=== PATIENT | male | born 1965 | race Caucasian/White ===

== ENCOUNTER 2018-08-03 06:08 | Emergency (ER) | payer OTHER ==
[2018-08-03] MEDS: ONDANSETRON 4 MG INJ IV ×3 (07:40→09:29)
[2018-08-03] MEDS: morphine 4 MG/ML VIAL IV (07:40)
[2018-08-03 07:41] LABS: ADD MAN DIFF? NO
[2018-08-03 07:43] LABS: WHITE BLOOD COUNT 11.1 10^3/ul (4.8-10.8)
[2018-08-03 07:43] LABS: ABNORMAL IP MESSAGE 1; BASOPHILS % 0.3 % (0.0-2.0); EOSINOPHILS % 0.4 % (0.0-7.0); HEMATOCRIT 40.1 % (42.0-52.0); HEMOGLOBIN 13.1 g/dl (14.0-18.0); LYMPHOCYTES # 0.6 10^3/ul (0.8-2.9); MEAN CORPUSCULAR HEMOGLOBIN 26.5 pg (29.0-33.0); MEAN CORPUSCULAR HGB CONC 32.7 g/dl (32.0-37.0); MEAN PLATELET VOLUME 8.8 fl (7.4-10.4); MONOCYTE # 0.8 10^3/ul (0.3-0.9); MONOCYTES % 7.6 % (0.0-11.0); NEUTROPHIL # 9.6 10^3/ul (1.6-7.5); NEUTROPHILS % 86.3 % (39.0-77.0); PLATELET COUNT 221 10^3/UL (140-415); POSITIVE DIFF @See below; RED BLOOD COUNT 4.95 10^6/ul (4.70-6.10); RED CELL DISTRIBUTION WIDTH 16.9 % (11.5-14.5)
[2018-08-03 08:02] LABS: ALANINE AMINOTRANSFERASE 16 IU/L (13-69); ALBUMIN 4.8 g/dl (3.3-4.9); ALBUMIN/GLOBULIN RATIO 1.09; ALKALINE PHOSPHATASE 128 IU/L (42-121); ANION GAP 16 (5-13); ASPARTATE AMINO TRANSFERASE 16 IU/L (15-46); BILIRUBIN,INDIRECT 0.5 mg/dl (0-1.1); BILIRUBIN,TOTAL 0.5 mg/dl (0.2-1.3); BLOOD UREA NITROGEN 28 mg/dl (7-20); CALCIUM 9.6 mg/dl (8.4-10.2); CARBON DIOXIDE 25 mmol/L (21-31); CHLORIDE 97 mmol/L (97-110); CREATININE 7.08 mg/dl (0.61-1.24); Estimated GFR 8 mL/min (>60); GLUCOSE 154 mg/dl (70-220); LIPASE 52 U/L (23-300); SODIUM 138 mmol/L (135-144); TOTAL PROTEIN 9.2 g/dl (6.1-8.1)
== END 2018-08-03 09:39 | disposition home or self-care (01) ==
LOC: E/R 06:08
DX: R10.9 Unspecified abdominal pain (principal); R11.2 Nausea with vomiting, unspecified; I12.0 Hypertensive chronic kidney disease with stage 5 chronic kidney disease or end stage renal disease; N18.6 End stage renal disease; Z99.2 Dependence on renal dialysis
CPT/HCPCS: 36415; 80053; 83690; 85025; 96374; 96375; 96376; 99284-25

== ENCOUNTER 2018-08-05 21:29 | Inpatient (IN) | payer OTHER ==
[2018-08-05 22:44] LABS: ADD MAN DIFF? NO
[2018-08-05 22:46] LABS: BASOPHILS % 0.3 % (0.0-2.0); EOSINOPHILS # 0.1 10^3/ul (0.0-0.5); HEMATOCRIT 34.1 % (42.0-52.0); HEMOGLOBIN 11.2 g/dl (14.0-18.0); LYMPHOCYTES # 0.8 10^3/ul (0.8-2.9); LYMPHOCYTES % 10.7 % (15.0-51.0); MEAN CORPUSCULAR HEMOGLOBIN 26.3 pg (29.0-33.0); MEAN CORPUSCULAR HGB CONC 32.8 g/dl (32.0-37.0); MEAN PLATELET VOLUME 8.7 fl (7.4-10.4); MONOCYTE # 0.8 10^3/ul (0.3-0.9); MONOCYTES % 11.6 % (0.0-11.0); NEUTROPHIL # 5.3 10^3/ul (1.6-7.5); PLATELET COUNT 185 10^3/UL (140-415); RED BLOOD COUNT 4.26 10^6/ul (4.70-6.10); RED CELL DISTRIBUTION WIDTH 16.1 % (11.5-14.5)
[2018-08-05 22:46] LABS: WHITE BLOOD COUNT 7.1 10^3/ul (4.8-10.8)
[2018-08-05] MEDS: morphine 4 MG/ML VIAL IV (22:52)
[2018-08-05] MEDS: ONDANSETRON 4 MG INJ IV (22:52)
[2018-08-05 23:02] LABS: LACTIC ACID 0.7 mmol/L (0.5-2.0)
[2018-08-05 23:04] LABS: ALANINE AMINOTRANSFERASE 16 IU/L (13-69); ALBUMIN/GLOBULIN RATIO 1.05; ALKALINE PHOSPHATASE 92 IU/L (42-121); ANION GAP 12 (5-13); ASPARTATE AMINO TRANSFERASE 11 IU/L (15-46); BILIRUBIN,INDIRECT 0.3 mg/dl (0-1.1); BILIRUBIN,TOTAL 0.3 mg/dl (0.2-1.3); BLOOD UREA NITROGEN 23 mg/dl (7-20); CALCIUM 8.4 mg/dl (8.4-10.2); CARBON DIOXIDE 27 mmol/L (21-31); CHLORIDE 94 mmol/L (97-110); Estimated GFR 10 mL/min (>60); GLUCOSE 127 mg/dl (70-220); LIPASE 18 U/L (23-300); POTASSIUM 3.7 mmol/L (3.5-5.1); SODIUM 133 mmol/L (135-144); TOTAL PROTEIN 7.8 g/dl (6.1-8.1)
[2018-08-05 23:15] LABS: TROPONIN-I < 0.012 ng/ml (0.000-0.120)
[2018-08-05] MEDS ORDERED: ACETAMINOPHEN 650 MG SUPP PR (23:30)
[2018-08-05] MEDS ORDERED: NACL 0.9% 3 ML SYG IV (23:30)
[2018-08-05] MEDS ORDERED: ACETAMINOPHEN 325 MG TAB PO (23:30)
[2018-08-05] MEDS: PIPER-TAZO 3.375 GM IV (PMX) 100 ML IVPB (23:34)
[2018-08-06] MEDS: hydrALAzine 20 MG INJ IV ×3 (00:08→14:59)
[2018-08-06] MEDS: metroNIDAZOLE 500 MG/NS (PMX) 100 ML IVPB ×4 (00:09→20:39)
[2018-08-06] MEDS: DEXTROSE 5%-0.45% NACL 1,000 ML IV ×2 (01:24→23:22)
[2018-08-06] MEDS: CIPROFLOXACIN 400 MG in D5W 200 ML IVPB (01:27)
[2018-08-06] MEDS: ONDANSETRON 4 MG INJ IV ×4 (03:16→22:20)
[2018-08-06] MEDS: morphine 2 MG INJ IV ×4 (03:18→22:20)
[2018-08-06] MEDS: PANTOPRAZOLE 40 MG INJ IV (05:49)
[2018-08-06 05:59] LABS: ADD MAN DIFF? NO
[2018-08-06 06:00] LABS: WHITE BLOOD COUNT 8.2 10^3/ul (4.8-10.8)
[2018-08-06 06:00] LABS: BASOPHILS % 0.2 % (0.0-2.0); EOSINOPHILS # 0.2 10^3/ul (0.0-0.5); EOSINOPHILS % 1.8 % (0.0-7.0); HEMATOCRIT 31.5 % (42.0-52.0); HEMOGLOBIN 10.3 g/dl (14.0-18.0); LYMPHOCYTES # 0.6 10^3/ul (0.8-2.9); LYMPHOCYTES % 7.3 % (15.0-51.0); MEAN CORPUSCULAR HEMOGLOBIN 26.7 pg (29.0-33.0); MEAN CORPUSCULAR HGB CONC 32.7 g/dl (32.0-37.0); MEAN CORPUSCULAR VOLUME 81.6 fl (82.0-101.0); MONOCYTE # 0.6 10^3/ul (0.3-0.9); MONOCYTES % 7.8 % (0.0-11.0); NEUTROPHIL # 6.8 10^3/ul (1.6-7.5); NEUTROPHILS % 82.4 % (39.0-77.0); PLATELET COUNT 182 10^3/UL (140-415); RED BLOOD COUNT 3.86 10^6/ul (4.70-6.10); RED CELL DISTRIBUTION WIDTH 16.1 % (11.5-14.5)
[2018-08-06 06:35] LABS: ALANINE AMINOTRANSFERASE 12 IU/L (13-69); ALBUMIN 3.7 g/dl (3.3-4.9); ALBUMIN/GLOBULIN RATIO 1.05; ALKALINE PHOSPHATASE 76 IU/L (42-121); ANION GAP 13 (5-13); ASPARTATE AMINO TRANSFERASE 11 IU/L (15-46); BILIRUBIN,INDIRECT 0.3 mg/dl (0-1.1); BILIRUBIN,TOTAL 0.3 mg/dl (0.2-1.3); BLOOD UREA NITROGEN 26 mg/dl (7-20); CARBON DIOXIDE 25 mmol/L (21-31); CHLORIDE 95 mmol/L (97-110); CREATININE 7.14 mg/dl (0.61-1.24); Estimated GFR 8 mL/min (>60); GLUCOSE 112 mg/dl (70-220); POTASSIUM 3.5 mmol/L (3.5-5.1); SODIUM 133 mmol/L (135-144); TOTAL PROTEIN 7.2 g/dl (6.1-8.1)
[2018-08-06] MEDS ORDERED: CIPROFLOXACIN 200 MG/D5W IVPB 100 ML IVPB (09:00)
[2018-08-06] MEDS: METOCLOPRAMIDE 10 MG INJ IV ×2 (11:19→16:55)
[2018-08-06] MEDS: AMLODIPINE 5 MG TAB PO ×2 (13:55→20:40)
[2018-08-06] MEDS ORDERED: DEXTROSE 50% 50 ML SYRINGE IV ×2 (14:00)
[2018-08-06] MEDS ORDERED: GLUCOSE GEL 15 GRAM TUBE BUCCAL (14:00)
[2018-08-06] MEDS ORDERED: GLUCAGON 1 MG INJ IM (14:00)
[2018-08-06] MEDS ORDERED: GLUCOSE GEL 15 GRAM TUBE PO ×2 (14:00)
[2018-08-06] MEDS: INSULIN ASPART [NOVOLOG] 3 ML PEN SC ×2 (17:58→21:00)
[2018-08-06 19:45] LABS: HEPATITIS B SURFACE ANTIGEN NEGATIVE (NEGATIVE)
[2018-08-06 20:02] LABS: HEPATITIS B SURFACE ANTIBODY NEGATIVE (NEGATIVE)
[2018-08-07] MEDS: CIPROFLOXACIN 400 MG in D5W 200 ML IVPB ×2 (01:12→23:38)
[2018-08-07] MEDS: ACCU-CHEK XX (02:00)
[2018-08-07] MEDS: PANTOPRAZOLE 40 MG INJ IV (05:23)
[2018-08-07 05:40] LABS: ADD MAN DIFF? NO
[2018-08-07 05:50] LABS: WHITE BLOOD COUNT 7.8 10^3/ul (4.8-10.8)
[2018-08-07 05:50] LABS: BASOPHIL # 0.1 10^3/ul (0.0-0.1); BASOPHILS % 0.6 % (0.0-2.0); EOSINOPHILS # 0.2 10^3/ul (0.0-0.5); EOSINOPHILS % 2.9 % (0.0-7.0); LYMPHOCYTES # 1.3 10^3/ul (0.8-2.9); MEAN CORPUSCULAR HEMOGLOBIN 26.5 pg (29.0-33.0); MEAN CORPUSCULAR HGB CONC 32.3 g/dl (32.0-37.0); MEAN CORPUSCULAR VOLUME 82.2 fl (82.0-101.0); MONOCYTE # 1.2 10^3/ul (0.3-0.9); MONOCYTES % 15.8 % (0.0-11.0); NEUTROPHILS % 63.3 % (39.0-77.0); PLATELET COUNT 190 10^3/UL (140-415); RED BLOOD COUNT 3.77 10^6/ul (4.70-6.10); RED CELL DISTRIBUTION WIDTH 16.4 % (11.5-14.5)
[2018-08-07] MEDS: ONDANSETRON 4 MG INJ IV ×2 (06:22→12:15)
[2018-08-07] MEDS: DEXTROSE 5%-0.45% NACL 1,000 ML IV (06:26)
[2018-08-07 06:34] LABS: MAGNESIUM 2.2 mg/dl (1.7-2.5)
[2018-08-07 06:34] LABS: PHOSPHORUS 6.9 mg/dl (2.5-4.9)
[2018-08-07 06:50] LABS: ALANINE AMINOTRANSFERASE 17 IU/L (13-69); ALBUMIN 3.6 g/dl (3.3-4.9); ALBUMIN/GLOBULIN RATIO 1.09; ALKALINE PHOSPHATASE 62 IU/L (42-121); ANION GAP 15 (5-13); ASPARTATE AMINO TRANSFERASE < 8 IU/L (15-46); BILIRUBIN,INDIRECT 0.2 mg/dl (0-1.1); BILIRUBIN,TOTAL 0.2 mg/dl (0.2-1.3); BLOOD UREA NITROGEN 32 mg/dl (7-20); CALCIUM 7.9 mg/dl (8.4-10.2); CARBON DIOXIDE 23 mmol/L (21-31); CHLORIDE 96 mmol/L (97-110); CREATININE 9.41 mg/dl (0.61-1.24); Estimated GFR 6 mL/min (>60); GLUCOSE 106 mg/dl (70-220); POTASSIUM 3.7 mmol/L (3.5-5.1); SODIUM 134 mmol/L (135-144); TOTAL PROTEIN 6.9 g/dl (6.1-8.1)
[2018-08-07] MEDS: INSULIN ASPART [NOVOLOG] 3 ML PEN SC ×4 (08:00→20:30)
[2018-08-07] MEDS: AMLODIPINE 5 MG TAB PO ×2 (08:16→20:27)
[2018-08-07] MEDS: metroNIDAZOLE 500 MG/NS (PMX) 100 ML IVPB ×3 (08:16→20:26)
[2018-08-07] MEDS: METOCLOPRAMIDE 10 MG INJ IV (15:00)
[2018-08-07] MEDS: HEPARIN 1000 UNITS/ML 10 ML INJ CATHETER (20:02)
[2018-08-08] MEDS: ACCU-CHEK XX (01:27)
[2018-08-08] MEDS: hydrALAzine 20 MG INJ IV (01:32)
[2018-08-08] MEDS: ONDANSETRON 4 MG INJ IV ×2 (04:46→21:04)
[2018-08-08] MEDS: PANTOPRAZOLE 40 MG INJ IV (06:14)
[2018-08-08] MEDS: INSULIN ASPART [NOVOLOG] 3 ML PEN SC ×4 (08:00→21:00)
[2018-08-08] MEDS: METOCLOPRAMIDE 10 MG INJ IV ×2 (08:24→19:46)
[2018-08-08] MEDS: metroNIDAZOLE 500 MG/NS (PMX) 100 ML IVPB ×2 (08:25→12:25)
[2018-08-08] MEDS: BENAZEPRIL 20 MG TAB PO (08:29)
[2018-08-08] MEDS: AMLODIPINE 5 MG TAB PO ×2 (08:30→21:04)
[2018-08-08] MEDS ORDERED: PROPOFOL 20 ML (11:34)
[2018-08-08] MEDS ORDERED: LIDOCAINE 2% (SDV) 5 ML INJ (11:34)
[2018-08-08] MEDS ORDERED: FENTAnyl 50 MCG/ML VIAL (11:34)
[2018-08-08] MEDS: morphine 2 MG INJ IV (19:43)
[2018-08-08] MEDS: DEXTROSE 5%-0.45% NACL 1,000 ML IV (19:46)
[2018-08-08] MEDS: DOCUSATE SODIUM 100 MG CAP PO (21:04)
[2018-08-08] MEDS: POLYETHYLENE GLYCOL 17 GM PACKET PO (21:04)
[2018-08-08] MEDS: CIPROFLOXACIN 500 MG TAB PO (23:38)
[2018-08-08] MEDS: metroNIDAZOLE 500 MG TAB PO (23:40)
[2018-08-09] MEDS: ACCU-CHEK XX (01:24)
[2018-08-09] MEDS: ONDANSETRON 4 MG INJ IV ×2 (02:25→06:35)
[2018-08-09 05:34] LABS: ADD MAN DIFF? NO
[2018-08-09 05:43] LABS: WHITE BLOOD COUNT 6.6 10^3/ul (4.8-10.8)
[2018-08-09 05:43] LABS: BASOPHILS % 0.3 % (0.0-2.0); EOSINOPHILS # 0.2 10^3/ul (0.0-0.5); EOSINOPHILS % 2.6 % (0.0-7.0); HEMATOCRIT 33.5 % (42.0-52.0); HEMOGLOBIN 10.7 g/dl (14.0-18.0); LYMPHOCYTES # 0.8 10^3/ul (0.8-2.9); LYMPHOCYTES % 11.5 % (15.0-51.0); MEAN CORPUSCULAR HGB CONC 31.9 g/dl (32.0-37.0); MEAN CORPUSCULAR VOLUME 81.5 fl (82.0-101.0); MEAN PLATELET VOLUME 9.1 fl (7.4-10.4); MONOCYTE # 0.7 10^3/ul (0.3-0.9); MONOCYTES % 10.9 % (0.0-11.0); NEUTROPHIL # 4.9 10^3/ul (1.6-7.5); NEUTROPHILS % 73.9 % (39.0-77.0); PLATELET COUNT 207 10^3/UL (140-415); RED BLOOD COUNT 4.11 10^6/ul (4.70-6.10); RED CELL DISTRIBUTION WIDTH 16.3 % (11.5-14.5)
[2018-08-09 05:55] LABS: ANION GAP 13 (5-13); BLOOD UREA NITROGEN 27 mg/dl (7-20); CALCIUM 8.2 mg/dl (8.4-10.2); CARBON DIOXIDE 24 mmol/L (21-31); CHLORIDE 98 mmol/L (97-110); Estimated GFR 6 mL/min (>60); GLUCOSE 121 mg/dl (70-220); PHOSPHORUS 6.2 mg/dl (2.5-4.9); SODIUM 135 mmol/L (135-144)
[2018-08-09 06:05] LABS: IRON 31 ug/dl (35-150)
[2018-08-09 06:15] LABS: % IRON SATURATION 16 % SAT (22-52); TOTAL IRON BINDING CAPACITY 195 ug/dl (241-421)
[2018-08-09] MEDS: PANTOPRAZOLE (EC) 40 MG TAB PO ×2 (06:35→17:24)
[2018-08-09] MEDS: morphine 2 MG INJ IV (06:36)
[2018-08-09 07:01] LABS: HEMOGLOBIN A1C 5.7 % (0-5.9)
[2018-08-09] MEDS: INSULIN ASPART [NOVOLOG] 3 ML PEN SC ×4 (08:00→21:00)
[2018-08-09] MEDS: metroNIDAZOLE 500 MG TAB PO ×3 (08:20→21:54)
[2018-08-09] MEDS: METOCLOPRAMIDE 10 MG INJ IV ×3 (08:21→23:32)
[2018-08-09] MEDS: AMLODIPINE 5 MG TAB PO ×2 (08:23→21:55)
[2018-08-09] MEDS: BENAZEPRIL 20 MG TAB PO (08:23)
[2018-08-09] MEDS: CALCIUM CARBONATE 500 MG CHEW TAB PO ×2 (10:35→21:54)
[2018-08-09] MEDS: SOD FERRIC GLUC COMPLX 125 MG in SOD CHLORIDE 0.9% 100 ML IVPB (13:03)
[2018-08-09] MEDS: DOCUSATE SODIUM 100 MG CAP PO (15:22)
[2018-08-09] MEDS: HEPARIN 1000 UNITS/ML 10 ML INJ CATHETER (20:46)
[2018-08-09] MEDS: ERYTHROMYCIN BASE (DR) 250 MG CAP PO (21:54)
[2018-08-09] MEDS: CIPROFLOXACIN 500 MG TAB PO (23:32)
[2018-08-10] MEDS: ACCU-CHEK XX (01:33)
[2018-08-10] MEDS: METOCLOPRAMIDE 10 MG INJ IV (05:59)
[2018-08-10] MEDS: PANTOPRAZOLE (EC) 40 MG TAB PO (05:59)
[2018-08-10] MEDS: BISACODYL 10 MG SUPP PR (05:59)
[2018-08-10] MEDS: ERYTHROMYCIN BASE (DR) 250 MG CAP PO (05:59)
[2018-08-10 07:08] LABS: IONIZED CALCIUM 1.1 mmol/L (1.1-1.4)
[2018-08-10 07:21] LABS: PARATHYROID HORMONE 127.7 pg/ml (24.0-73.0)
[2018-08-10] MEDS: INSULIN ASPART [NOVOLOG] 3 ML PEN SC (08:00)
[2018-08-10] MEDS ORDERED: LABETALOL 100 MG TAB PO (10:00)
[2018-08-10] MEDS: BENAZEPRIL 20 MG TAB PO (10:29)
[2018-08-10] MEDS: metroNIDAZOLE 500 MG TAB PO (10:29)
[2018-08-10] MEDS: CALCIUM CARBONATE 500 MG CHEW TAB PO (10:29)
[2018-08-10] MEDS: AMLODIPINE 5 MG TAB PO (10:30)
[2018-08-10] MEDS: ERGOCALCIFEROL 50,000 UNIT CAP PO (12:40)
== END 2018-08-10 13:30 | disposition home or self-care (01) | DRG 391 ==
LOC: 2NE 23:18 → E/R 21:29
PROC: 0DB68ZX Excision of Stomach, Via Natural or Artificial Opening Endoscopic, Diagnostic (ICD-10-PCS; principal; 2018-08-08 11:10)
PROC: 5A1D70Z Performance of Urinary Filtration, Intermittent, Less than 6 Hours Per Day (ICD-10-PCS; 2018-08-08 11:10)
DX: K29.00 Acute gastritis without bleeding (principal); N18.6 End stage renal disease; I12.0 Hypertensive chronic kidney disease with stage 5 chronic kidney disease or end stage renal disease; E87.1 Hypo-osmolality and hyponatremia; K31.84 Gastroparesis; E11.22 Type 2 diabetes mellitus with diabetic chronic kidney disease; E11.43 Type 2 diabetes mellitus with diabetic autonomic (poly)neuropathy; E78.5 Hyperlipidemia, unspecified; D63.1 Anemia in chronic kidney disease; E55.9 Vitamin D deficiency, unspecified; E83.51 Hypocalcemia; K31.819 Angiodysplasia of stomach and duodenum without bleeding; Z99.2 Dependence on renal dialysis; Z89.411 Acquired absence of right great toe
CPT/HCPCS: 71045; 74176; 80048; 80053; 82330; 82652; 82962; 83036; 83540; 83605; 83690; 83735; 83970; 84100; 84484; 85025; 86706; 87045; 87081; 87177; 87340; 88305; 90935; 93005; 93922; 93970

== ENCOUNTER 2018-08-24 15:44 | Inpatient (IN) | payer OTHER ==
[2018-08-24 16:26] LABS: ADD MAN DIFF? NO
[2018-08-24 16:30] LABS: WHITE BLOOD COUNT 5.5 10^3/ul (4.8-10.8)
[2018-08-24 16:30] LABS: BASOPHILS % 0.6 % (0.0-2.0); EOSINOPHILS # 0.3 10^3/ul (0.0-0.5); EOSINOPHILS % 4.6 % (0.0-7.0); HEMATOCRIT 32.7 % (42.0-52.0); HEMOGLOBIN 10.4 g/dl (14.0-18.0); LYMPHOCYTES # 0.9 10^3/ul (0.8-2.9); LYMPHOCYTES % 16.3 % (15.0-51.0); MEAN CORPUSCULAR HEMOGLOBIN 26.4 pg (29.0-33.0); MEAN CORPUSCULAR HGB CONC 31.8 g/dl (32.0-37.0); MEAN PLATELET VOLUME 8.5 fl (7.4-10.4); MONOCYTE # 0.7 10^3/ul (0.3-0.9); MONOCYTES % 13.2 % (0.0-11.0); NEUTROPHIL # 3.5 10^3/ul (1.6-7.5); NEUTROPHILS % 64.7 % (39.0-77.0); PLATELET COUNT 202 10^3/UL (140-415); RED BLOOD COUNT 3.94 10^6/ul (4.70-6.10)
[2018-08-24] MEDS: ASPIRIN 325 MG TAB PO (16:36)
[2018-08-24] MEDS: NICARDipine HCL 30 MG CAPSULE PO (16:37)
[2018-08-24 16:49] LABS: ALANINE AMINOTRANSFERASE 20 IU/L (13-69); ALBUMIN/GLOBULIN RATIO 1.17; ALKALINE PHOSPHATASE 81 IU/L (42-121); ANION GAP 11 (5-13); ASPARTATE AMINO TRANSFERASE 20 IU/L (15-46); BILIRUBIN,INDIRECT 0.4 mg/dl (0-1.1); BILIRUBIN,TOTAL 0.4 mg/dl (0.2-1.3); BLOOD UREA NITROGEN 37 mg/dl (7-20); CALCIUM 8.7 mg/dl (8.4-10.2); CARBON DIOXIDE 25 mmol/L (21-31); CHLORIDE 95 mmol/L (97-110); CREATINE KINASE 102 IU/L (23-200); CREATININE 7.14 mg/dl (0.61-1.24); Estimated GFR 8 mL/min (>60); GLUCOSE 160 mg/dl (70-220); INR 0.93; PROTIME 12.6 Sec (11.9-14.9); SODIUM 131 mmol/L (135-144); TOTAL PROTEIN 7.4 g/dl (6.1-8.1)
[2018-08-24] MEDS ORDERED: ONDANSETRON 4 MG INJ IV (17:00)
[2018-08-24 17:01] LABS: CK-MB 2.04 ng/ml (0.0-2.4); TROPONIN-I 0.013 ng/ml (0.000-0.120)
[2018-08-24 17:18] LABS: B-TYPE NATRIURETIC PEPTIDE 116000 PG/ML (0-125)
[2018-08-24] MEDS: hydrALAzine 20 MG INJ IV (17:49)
[2018-08-24] MEDS: LABETALOL HCL 20MG INJ IV (18:40)
[2018-08-24] MEDS: ACETAMINOPHEN 325 MG TAB PO ×2 (18:40→22:30)
[2018-08-24] MEDS ORDERED: DEXTROSE 50% 50 ML SYRINGE IV ×2 (22:00)
[2018-08-24] MEDS ORDERED: GLUCOSE GEL 15 GRAM TUBE BUCCAL (22:00)
[2018-08-24] MEDS ORDERED: GLUCOSE GEL 15 GRAM TUBE PO ×2 (22:00)
[2018-08-24] MEDS ORDERED: GLUCAGON 1 MG INJ IM (22:00)
[2018-08-24 23:13] LABS: CREATINE KINASE 109 IU/L (23-200)
[2018-08-24 23:26] LABS: CK INDEX 1.8; CK-MB 1.99 ng/ml (0.0-2.4); TROPONIN-I 0.027 ng/ml (0.000-0.120)
[2018-08-25] MEDS: traMADol 50 MG TAB PO (00:47)
[2018-08-25] MEDS: ACCU-CHEK XX (01:56)
[2018-08-25] MEDS: ALPRAZOLAM 0.25 MG TAB PO (02:37)
[2018-08-25] MEDS: HYDROCODONE/APAP (5/325) TAB PO (02:37)
[2018-08-25 05:25] LABS: ADD MAN DIFF? NO
[2018-08-25 05:32] LABS: WHITE BLOOD COUNT 5.3 10^3/ul (4.8-10.8)
[2018-08-25 05:32] LABS: BASOPHILS % 0.7 % (0.0-2.0); EOSINOPHILS # 0.2 10^3/ul (0.0-0.5); EOSINOPHILS % 3.9 % (0.0-7.0); HEMATOCRIT 29.2 % (42.0-52.0); HEMOGLOBIN 9.3 g/dl (14.0-18.0); LYMPHOCYTES % 18.5 % (15.0-51.0); MEAN CORPUSCULAR HEMOGLOBIN 26.4 pg (29.0-33.0); MEAN CORPUSCULAR HGB CONC 31.8 g/dl (32.0-37.0); MEAN PLATELET VOLUME 8.7 fl (7.4-10.4); MONOCYTE # 0.7 10^3/ul (0.3-0.9); MONOCYTES % 13.5 % (0.0-11.0); NEUTROPHIL # 3.4 10^3/ul (1.6-7.5); NEUTROPHILS % 62.8 % (39.0-77.0); PLATELET COUNT 194 10^3/UL (140-415); RED BLOOD COUNT 3.52 10^6/ul (4.70-6.10); RED CELL DISTRIBUTION WIDTH 15.9 % (11.5-14.5)
[2018-08-25 06:13] LABS: CK-MB 1.63 ng/ml (0.0-2.4); TROPONIN-I 0.031 ng/ml (0.000-0.120)
[2018-08-25 06:23] LABS: CK INDEX 1.7; CREATINE KINASE 95 IU/L (23-200)
[2018-08-25] MEDS: INSULIN ASPART [NOVOLOG] 3 ML PEN SC ×4 (07:58→20:44)
[2018-08-25 08:33] LABS: ALANINE AMINOTRANSFERASE 18 IU/L (13-69); ALBUMIN 3.4 g/dl (3.3-4.9); ALBUMIN/GLOBULIN RATIO 1.17; ALKALINE PHOSPHATASE 62 IU/L (42-121); ANION GAP 13 (5-13); ASPARTATE AMINO TRANSFERASE 16 IU/L (15-46); BILIRUBIN,INDIRECT 0.3 mg/dl (0-1.1); BILIRUBIN,TOTAL 0.3 mg/dl (0.2-1.3); BLOOD UREA NITROGEN 44 mg/dl (7-20); CALCIUM 8.5 mg/dl (8.4-10.2); CARBON DIOXIDE 24 mmol/L (21-31); CHLORIDE 94 mmol/L (97-110); CREATININE 8.09 mg/dl (0.61-1.24); Estimated GFR 7 mL/min (>60); GLUCOSE 120 mg/dl (70-220); POTASSIUM 3.6 mmol/L (3.5-5.1); SODIUM 131 mmol/L (135-144); TOTAL PROTEIN 6.3 g/dl (6.1-8.1)
[2018-08-25] MEDS: BISACODYL (EC) 5 MG TAB PO ×2 (08:57→20:47)
[2018-08-25] MEDS: BENAZEPRIL 40 MG TAB PO (08:58)
[2018-08-25] MEDS: PANTOPRAZOLE (EC) 40 MG TAB PO (08:58)
[2018-08-25] MEDS: ERGOCALCIFEROL 50,000 UNIT CAP PO (08:58)
[2018-08-25] MEDS: CALCIUM ACETATE 667 MG CAP PO ×3 (08:58→17:19)
[2018-08-25] MEDS: POLYETHYLENE GLYCOL 17 GM PACKET PO (09:07)
[2018-08-25] MEDS ORDERED: LACTULOSE 30ML CUP PO (12:00)
[2018-08-25] MEDS: HEPARIN 5,000 UNIT/1 ML VIAL SC ×2 (12:37→20:55)
[2018-08-25] MEDS ORDERED: hydrALAzine 20 MG INJ IV (14:00)
[2018-08-25] MEDS: HEPARIN 1000 UNITS/ML 10 ML INJ CATHETER (16:53)
[2018-08-26] MEDS: HYDROCODONE/APAP (5/325) TAB PO (00:31)
[2018-08-26] MEDS: ALPRAZOLAM 0.25 MG TAB PO (00:31)
[2018-08-26] MEDS: ACCU-CHEK XX (01:33)
[2018-08-26] MEDS: PANTOPRAZOLE (EC) 40 MG TAB PO (05:34)
[2018-08-26 06:07] LABS: ADD MAN DIFF? NO
[2018-08-26 06:23] LABS: BASOPHILS % 0.6 % (0.0-2.0); EOSINOPHILS # 0.2 10^3/ul (0.0-0.5); EOSINOPHILS % 4.5 % (0.0-7.0); HEMATOCRIT 32.5 % (42.0-52.0); HEMOGLOBIN 10.2 g/dl (14.0-18.0); LYMPHOCYTES # 0.9 10^3/ul (0.8-2.9); MEAN CORPUSCULAR HGB CONC 31.4 g/dl (32.0-37.0); MEAN CORPUSCULAR VOLUME 82.7 fl (82.0-101.0); MEAN PLATELET VOLUME 9.8 fl (7.4-10.4); MONOCYTE # 0.7 10^3/ul (0.3-0.9); MONOCYTES % 14.4 % (0.0-11.0); NEUTROPHIL # 2.9 10^3/ul (1.6-7.5); NEUTROPHILS % 60.7 % (39.0-77.0); PLATELET COUNT 204 10^3/UL (140-415); RED BLOOD COUNT 3.93 10^6/ul (4.70-6.10)
[2018-08-26 06:23] LABS: WHITE BLOOD COUNT 4.9 10^3/ul (4.8-10.8)
[2018-08-26 06:52] LABS: CHOL/HDL RATIO 4.4 RATIO; HDL CHOLESTEROL 35 mg/dl (28-71); LDL CHOLESTEROL,CALCULATED 111 mg/dl; TRIGLYCERIDES 52 mg/dl (0-149)
[2018-08-26 06:52] LABS: CHOLESTEROL 156 mg/dl (100-200)
[2018-08-26 07:18] LABS: ANION GAP 8 (5-13); BLOOD UREA NITROGEN 32 mg/dl (7-20); CALCIUM 8.6 mg/dl (8.4-10.2); CARBON DIOXIDE 27 mmol/L (21-31); CHLORIDE 99 mmol/L (97-110); CREATININE 6.45 mg/dl (0.61-1.24); Estimated GFR 9 mL/min (>60); GLUCOSE 115 mg/dl (70-220); POTASSIUM 4.7 mmol/L (3.5-5.1); SODIUM 134 mmol/L (135-144)
[2018-08-26] MEDS: CALCIUM ACETATE 667 MG CAP PO ×3 (08:00→17:16)
[2018-08-26] MEDS: INSULIN ASPART [NOVOLOG] 3 ML PEN SC ×4 (08:00→21:00)
[2018-08-26] MEDS: BISACODYL (EC) 5 MG TAB PO ×2 (08:26→20:35)
[2018-08-26] MEDS: POLYETHYLENE GLYCOL 17 GM PACKET PO (08:26)
[2018-08-26] MEDS: BENAZEPRIL 40 MG TAB PO (08:27)
[2018-08-26] MEDS: HEPARIN 5,000 UNIT/1 ML VIAL SC ×2 (08:34→20:38)
[2018-08-26] MEDS: REGADENOSON 0.4 MG/5 ML SYG (11:38)
[2018-08-26] MEDS: ONDANSETRON 4 MG INJ IV (12:14)
[2018-08-26] MEDS: HEPARIN 1000 UNITS/ML 10 ML INJ CATHETER (17:15)
[2018-08-27] MEDS: ACCU-CHEK XX (02:00)
[2018-08-27] MEDS: ALPRAZOLAM 0.25 MG TAB PO (02:57)
[2018-08-27 06:01] LABS: ANION GAP 8 (5-13); BLOOD UREA NITROGEN 23 mg/dl (7-20); CALCIUM 8.7 mg/dl (8.4-10.2); CARBON DIOXIDE 26 mmol/L (21-31); CHLORIDE 103 mmol/L (97-110); CREATININE 5.62 mg/dl (0.61-1.24); Estimated GFR 11 mL/min (>60); GLUCOSE 139 mg/dl (70-220); POTASSIUM 4.8 mmol/L (3.5-5.1); SODIUM 137 mmol/L (135-144)
[2018-08-27] MEDS: PANTOPRAZOLE (EC) 40 MG TAB PO (06:23)
[2018-08-27] MEDS: INSULIN ASPART [NOVOLOG] 3 ML PEN SC ×2 (07:50→11:42)
[2018-08-27] MEDS: CALCIUM ACETATE 667 MG CAP PO ×2 (07:52→11:37)
[2018-08-27] MEDS: POLYETHYLENE GLYCOL 17 GM PACKET PO (08:30)
[2018-08-27] MEDS: BISACODYL (EC) 5 MG TAB PO (08:30)
[2018-08-27] MEDS: HEPARIN 5,000 UNIT/1 ML VIAL SC (08:32)
[2018-08-27] MEDS: BENAZEPRIL 40 MG TAB PO (08:36)
[2018-08-27] MEDS: ACETAMINOPHEN 325 MG TAB PO (11:36)
== END 2018-08-27 15:20 | disposition home or self-care (01) | DRG 304 ==
LOC: E/R 15:44 → 6WM 16:48
PROC: 5A1D70Z Performance of Urinary Filtration, Intermittent, Less than 6 Hours Per Day (ICD-10-PCS; principal; 2018-08-25)
DX: I16.1 Hypertensive emergency (principal); N18.6 End stage renal disease; E87.1 Hypo-osmolality and hyponatremia; I42.9 Cardiomyopathy, unspecified; I50.30 Unspecified diastolic (congestive) heart failure; R07.9 Chest pain, unspecified; R51 Headache; Z99.2 Dependence on renal dialysis; E78.5 Hyperlipidemia, unspecified; K59.00 Constipation, unspecified; D64.9 Anemia, unspecified; R00.1 Bradycardia, unspecified; R73.03 Prediabetes; E66.3 Overweight; Z68.27 Body mass index [BMI] 27.0-27.9, adult; I13.2 Hypertensive heart and chronic kidney disease with heart failure and with stage 5 chronic kidney disease, or end stage renal disease
CPT/HCPCS: 36415; 70450; 71045; 78452; 80048; 80053; 80061; 82550; 82553; 82962; 83880; 84484; 85025; 85610; 85730; 87081; 90935; 93005; 93017; 93306; 99217; 99291-25

== ENCOUNTER 2018-08-31 03:19 | Emergency (ER) | payer OTHER ==
[2018-08-31 04:27] LABS: ADD MAN DIFF? NO
[2018-08-31 04:30] LABS: BASOPHIL # 0.1 10^3/ul (0.0-0.1); BASOPHILS % 0.9 % (0.0-2.0); EOSINOPHILS # 0.2 10^3/ul (0.0-0.5); EOSINOPHILS % 3.4 % (0.0-7.0); HEMATOCRIT 34.1 % (42.0-52.0); HEMOGLOBIN 10.9 g/dl (14.0-18.0); LYMPHOCYTES # 1.2 10^3/ul (0.8-2.9); LYMPHOCYTES % 21.8 % (15.0-51.0); MEAN CORPUSCULAR HEMOGLOBIN 26.5 pg (29.0-33.0); MEAN PLATELET VOLUME 9.5 fl (7.4-10.4); MONOCYTE # 0.7 10^3/ul (0.3-0.9); MONOCYTES % 12.4 % (0.0-11.0); NEUTROPHIL # 3.4 10^3/ul (1.6-7.5); NEUTROPHILS % 61.1 % (39.0-77.0); PLATELET COUNT 221 10^3/UL (140-415); RED BLOOD COUNT 4.11 10^6/ul (4.70-6.10); RED CELL DISTRIBUTION WIDTH 15.4 % (11.5-14.5)
[2018-08-31 04:30] LABS: WHITE BLOOD COUNT 5.6 10^3/ul (4.8-10.8)
[2018-08-31 04:56] LABS: ANION GAP 11 (5-13); BLOOD UREA NITROGEN 26 mg/dl (7-20); CARBON DIOXIDE 26 mmol/L (21-31); CHLORIDE 96 mmol/L (97-110); CREATININE 6.26 mg/dl (0.61-1.24); Estimated GFR 9 mL/min (>60); GLUCOSE 114 mg/dl (70-220); POTASSIUM 3.8 mmol/L (3.5-5.1); SODIUM 133 mmol/L (135-144)
[2018-08-31 05:07] LABS: TROPONIN-I 0.019 ng/ml (0.000-0.120)
[2018-08-31] MEDS: ACETAMINOPHEN 325 MG TAB PO (05:10)
== END 2018-08-31 05:49 | disposition home or self-care (01) ==
LOC: E/R 03:19
DX: R07.9 Chest pain, unspecified (principal); D64.9 Anemia, unspecified; I10 Essential (primary) hypertension
CPT/HCPCS: 36415; 71045; 80048; 84484; 85025; 93005; 99285-25